=== PATIENT | female | born 1940 | race Asian ===

== ENCOUNTER 2024-02-05 20:08 | Inpatient (IN) | payer MEDICARE, OTHER ==
[~2024-02-05] VITALS: Ht 160 cm; Wt 52.4 kg
[~2024-02-05 20:08] MED LIST: ASPI-825 PO; CALC1TAB15 PO; FOSAMAX PO; HYDROCHLOROTHIAZIDE PO; SIMV-43 PO
[2024-02-05 21:04] LABS: BASOPHILS % (AUTO) 0.5 % (0.0-2.0); EOSINOPHILS % (AUTO) 2.6 % (1.0-6.0); HEMATOCRIT 43.7 % (36-46); HEMOGLOBIN 14.4 g/dL (12.0-16.0); LYMPHOCYTES # (AUTO) 1.7 K/uL (1.0-4.8); LYMPHOCYTES % (AUTO) 25.7 % (22.0-44.0); MEAN CORPUSCULAR HEMOGLOBIN 29.6 pg (26.0-34.0); MEAN CORPUSCULAR HGB CONC 32.9 G/dL (31.0-37.0); MEAN CORPUSCULAR VOLUME 90 fL (80-100); MONOCYTES # (AUTO) 0.6 K/uL (0.1-1.0); MONOCYTES % (AUTO) 9.5 % (2.0-9.0); NEUTROPHILS # (AUTO) 4.2 K/uL (1.8-7.7); NEUTROPHILS % (AUTO) 61.7 % (40.0-70.0); PLATELET COUNT (AUTO) 382 K/uL (150-450); RED BLOOD CELL COUNT(AUTO) 4.86 MIL/uL (4.00-5.20); RED CELL DISTRIBUTION WIDTH 13.5 % (11.5-14.5); WHITE BLOOD COUNT (AUTO) 6.7 K/uL (4.5-11.0)
[2024-02-05 21:14] LABS: APPEARANCE,URINE CLEAR (CLEAR); BILIRUBIN,URINE NEGATIVE (NEGATIVE); COLOR,URINE LIGHT YELLOW (YELLOW); GLUCOSE, URINE (UA) NEGATIVE (NEGATIVE); KETONES,URINE TRACE mg/dL (NEGATIVE); LEUKOCYTE ESTERASE ,URINE NEGATIVE (NEGATIVE); NITRATE,URINE NEGATIVE (NEGATIVE); OCCULT BLOOD,URINE TRACE (NEGATIVE); PROTEIN,URINE TRACE mg/dL (NEGATIVE); SPECIFIC GRAVITIY, URINE 1.023 (1.003-1.030); UROBILINOGEN,URINE <=1.0 mg/dL (<=1.0)
[2024-02-05 21:15] LABS: ANION GAP 10 mmol/L (8-16); CARBON DIOXIDE 26 mmol/L (22-29); CHLORIDE 101 mmol/L (98-107); CREATININE 0.83 mg/dL (0.60-1.30); GLOMERULAR FILTR. RATE CALC > 60 mL/min (>60); GLUCOSE,RANDOM 114 mg/dL (70-110); POTASSIUM 3.7 mmol/L (3.5-5.1); SODIUM SERUM 137 mmol/L (136-145); UREA NITROGEN, BLOOD 23 mg/dL (7-18)
[2024-02-05 21:21] LABS: ALCOHOL, URINE DRUG SCREEN NEGATIVE (NEGATIVE); AMPHET/METH SCREEN,URINE NEGATIVE (NEGATIVE); BARBITURATE SCREEN, URINE NEGATIVE (NEGATIVE); BENZODIAZEPINES SCREEN,URINE NEGATIVE (NEGATIVE); CANNABINOID SCREEN,URINE NEGATIVE (NEGATIVE); COCAINE SCREEN,URINE NEGATIVE (NEGATIVE); METHADONE SCREEN, URINE NEGATIVE (NEGATIVE); OPIATE SCREEN,URINE NEGATIVE (NEGATIVE); PHENCYCLIDINE SCREEN,URINE NEGATIVE (NEGATIVE)
[2024-02-05 21:23] LABS: ALCOHOL, BLOOD (SERUM) < 3 mg/dL (0-10)
[2024-02-05 21:24] LABS: BACTERIA,URINE None Seen /HPF (None Seen); RBC,URINE None Seen /HPF (0-2); SQUAMOUS EPITHELIAL CELL,UR None Seen /LPF (None Seen); WBC,URINE None Seen /HPF (0-5)
[2024-02-06 06:05] VITALS: O2SAT 97
[2024-02-06] MEDS ORDERED: ZOLPIDEM TARTRATE 10 MG TABLET PO PRN (07:45)
[2024-02-06] MEDS ORDERED: LORazepam 1 MG TABLET PO PRN (07:45)
[2024-02-06] MEDS ORDERED: ACETAMINOPHEN 325 MG TABLET PO PRN ×2 (07:45→20:15)
[2024-02-06] MEDS ORDERED: LOPERAMIDE HCL 2 MG CAPSULE PO PRN ×2 (07:45→20:15)
[2024-02-06] MEDS ORDERED: HALOPERIDOL 5 MG TABLET PO PRN (07:45)
[2024-02-06] MEDS ORDERED: MAGNESIUM HYDROXIDE SUSPENSION 30 ML UDCUP PO PRN ×2 (07:45→20:15)
[2024-02-06 08:05] LABS: COVID AG,FIA SOURCE NASAL SWAB
[2024-02-06 08:35] LABS: SARS-COV2 (COVID) ANTIGEN,FIA Negative (Negative)
[2024-02-06 10:00] VITALS: BP 145/80; PULSE 64; RESP 20; TEMP 97.3; O2SAT 99
[2024-02-06] MEDS ORDERED: ZOLPIDEM TARTRATE 5 MG TABLET PO PRN (15:45)
[2024-02-06 17:00] VITALS: BP 158/93; PULSE 70; RESP 18; TEMP 97.3; O2SAT 99
[2024-02-06 18:09] VITALS: BP 119/76; PULSE 83; RESP 18; TEMP 97; O2SAT 99
[2024-02-06] MEDS ORDERED: ALBUTEROL SULFATE HFA 90 MCG/PUFF 8 GM INHALER IH PRN (20:15)
[2024-02-06] MEDS ORDERED: ONDANSETRON 4 MG TABLET PO PRN (20:15)
[2024-02-06] MEDS ORDERED: CloNIDine HCL 0.1 MG TABLET PO PRN (20:15)
[2024-02-06] MEDS ORDERED: DOCUSATE SODIUM 100 MG CAPSULE PO PRN (20:15)
[2024-02-06] MEDS ORDERED: PETROLATUM,WHITE 28 GM JELLY TP PRN (20:15)
[2024-02-06] MEDS ORDERED: IBUPROFEN 400 MG TABLET PO PRN (20:15)
[2024-02-06] MEDS ORDERED: NICOTINE 14 MG/24 HOUR PATCH TD PRN (20:15)
[2024-02-06 20:18] VITALS: BP 158/93; PULSE 70; RESP 18; TEMP 97.3; O2SAT 99
[2024-02-06] MEDS ORDERED: ASPI-1450 PO (20:22)
[2024-02-06] MEDS ORDERED: ALEN70TA65 PO (20:22)
[2024-02-06] MEDS ORDERED: HYDR25TA2 PO (20:22)
[2024-02-06] MEDS ORDERED: OS500 PO (20:22)
[2024-02-07] MEDS: AmLODIPine BESYLATE 5 MG TABLET PO SCH (08:13)
[2024-02-07] MEDS: ASPIRIN 81 MG CHEWABLE TABLET PO SCH (08:13)
[2024-02-07 08:19] VITALS: BP 131/83; PULSE 73; RESP 17; TEMP 97.1; O2SAT 96
[2024-02-07] MEDS: INFLUENZA VIRUS VACCINE TVS (6MO+) 2024-25/PF 45 MCG/0.5 ML SYRINGE IM. ONE (09:53)
[2024-02-07] MEDS: PNEUMOCOCCAL VACCINE POLYVALENT 0.5 ML SYRINGE [PPSV23] IM. ONE (09:55)
[2024-02-07 11:13] LABS: HEMOGLOBIN A1C 5.5 % (3.8-5.6)
[2024-02-07 11:26] LABS: THYROID STIMULATING HORMONE 1.05 uIU/mL (0.36-3.74)
[2024-02-07 20:22] VITALS: BP 143/78; PULSE 94; RESP 18; TEMP 97.3; O2SAT 97
[2024-02-08] MEDS: SIMVASTATIN 20 MG TABLET PO SCH (08:16)
[2024-02-08 08:21] VITALS: BP 105/65; PULSE 72; RESP 17; TEMP 98; O2SAT 98
[2024-02-08 20:15] VITALS: BP 114/62; PULSE 83; RESP 18; TEMP 97.5; O2SAT 96
[2024-02-09 08:04] VITALS: BP 110/77; PULSE 75; RESP 17; TEMP 97.7; O2SAT 96
[2024-02-09 10:01] LABS: CHOL/HDL RATIO 2.3 (3.9-5.7)
[2024-02-09 20:02] VITALS: BP 118/75; PULSE 85; RESP 18; TEMP 97.8; O2SAT 97
[2024-02-10 08:11] VITALS: BP 134/70; PULSE 95; RESP 17; TEMP 97.5; O2SAT 97
[2024-02-10 22:54] VITALS: BP 124/69; PULSE 83; RESP 18; TEMP 97; O2SAT 97
[2024-02-11 08:14] VITALS: BP 123/61; PULSE 63; RESP 17; TEMP 97.4; O2SAT 99
[2024-02-11 20:32] VITALS: BP 123/61; PULSE 63; TEMP 97.4
[2024-02-11 21:44] VITALS: BP 136/84; PULSE 71; RESP 18; TEMP 97.9; O2SAT 99
[2024-02-12 08:35] VITALS: BP 113/79; PULSE 80; RESP 18; TEMP 97.7; O2SAT 98
[2024-02-12] MEDS ORDERED: ASPI-1450 PO (11:06)
[2024-02-12] MEDS ORDERED: SIMV-43 PO (11:06)
[2024-02-12] MEDS ORDERED: AMLO-257 PO (11:06)
== END 2024-02-12 16:25 | disposition home or self-care (01) | DRG 885 ==
LOC: EMS 20:08 → B2X 02-06 07:16
PROVIDERS: ADMIT Psychiatry & Neurology Psychiatry; ATTEND Psychiatry & Neurology Psychiatry
PROC: GZ56ZZZ Individual Psychotherapy, Supportive (ICD-10-PCS; principal; 2024-02-07)
PROC: GZ58ZZZ Individual Psychotherapy, Cognitive-Behavioral (ICD-10-PCS; 2024-02-07)
PROC: GZHZZZZ Group Psychotherapy (ICD-10-PCS; 2024-02-07)
DX: F29 Unspecified psychosis not due to a substance or known physiological condition (principal); F03.918 Unspecified dementia, unspecified severity, with other behavioral disturbance; E03.9 Hypothyroidism, unspecified; I10 Essential (primary) hypertension; E78.5 Hyperlipidemia, unspecified; M81.0 Age-related osteoporosis without current pathological fracture; Z20.822 Contact with and (suspected) exposure to COVID-19; R45.850 Homicidal ideations; D64.9 Anemia, unspecified; M19.90 Unspecified osteoarthritis, unspecified site
CPT/HCPCS: 80048; 80061; 80307; 81001; 83036; 84443; 85025; 90686; 90732; 99285; G0480